=== PATIENT | male | born 1985 | race Two or more races ===

== ENCOUNTER 2019-11-27 11:36 | Emergency (ER) | payer OTHER ==
[~2019-11-27] VITALS: Ht 170.2 cm; Wt 70.8 kg
--- NOTE | 2019-11-27 12:00 | NUR ---
constance, c/o left ear pain x 1 week worsening today. On room air, breathing evenly and unlabored. kept comfortable, will continue to monitor accordingly.
[2019-11-27] MEDS ORDERED: HYDROCODONE/APAP 5/325MG 1 EACH TABLET PO ONE (12:30)
[2019-11-27] MEDS ORDERED: HYDROCODONE/APAP 5/325MG 1 EACH TABLET ONE (12:44)
[2019-11-27 14:31] VITALS: BP 140/71
--- NOTE | 2019-11-27 14:31 | NUR ---
Patient discharged to home in stable condition. Written and verbal after care instructions given. Patient verbalizes understanding of instruction.
== END 2019-11-27 14:31 | disposition home or self-care (01) ==
LOC: ER 11:40
DX: H61.22 Impacted cerumen, left ear (principal); R51 Headache
CPT/HCPCS: 69209; 99283; A6403

== ENCOUNTER 2021-08-31 22:25 | Emergency (ER) | payer BC, OTHER ==
[~2021-08-31] VITALS: Ht 177.8 cm; Wt 86.2 kg
--- NOTE | 2021-08-31 22:45 | NUR ---
PT AAOX4. BIBSELF C/O MIDSTERNAL CP X2 DAYS. STATED EACH TIME HE DRINKS WATER, IT HURTS. PLACED IN BED 1, ON CARIDAC MONITOR AND PULSE OX. ER EMT AT BEDSIDE FOR EKG. AWAITING ORDERS. VSS.
[2021-08-31] MEDS ORDERED: PANT40TA2 PO (22:53)
[2021-08-31] MEDS ORDERED: LIDOCAINE VISCOUS 2% UD 15 ML UDC ONE (22:56)
[2021-08-31] MEDS ORDERED: MAG HYDROX/AL HYDROX/SIMETH 30 ML UDC ONE (22:56)
--- NOTE | 2021-08-31 22:58 | NUR ---
Patient discharged to home in stable condition. Written and verbal after care instructions given. Patient verbalizes understanding of instruction.
[2021-08-31 22:59] VITALS: BP 136/76
[2021-08-31] MEDS ORDERED: MAG HYDROX/AL HYDROX/SIMETH 30 ML UDC PO ONE (23:00)
[2021-08-31] MEDS ORDERED: LIDOCAINE VISCOUS 2% UD 15 ML UDC MM ONE (23:00)
== END 2021-08-31 23:37 | disposition home or self-care (01) ==
LOC: ER 22:27
DX: K21.9 Gastro-esophageal reflux disease without esophagitis (principal); Z79.899 Other long term (current) drug therapy